=== PATIENT | male | born 1990 | race Caucasian/White ===

== ENCOUNTER 2020-09-06 20:27 | Emergency (ER) | payer OTHER ==
[2020-09-06 20:50] VITALS: BP 136/85; PULSE 116; TEMP 99.7; BMI 50.7
[2020-09-06 22:01] LABS: BASO % 0.9 % (0-2.0); EOS % 2.7 % (0-4.5); HEMATOCRIT 47.4 % (35.4-49); HEMOGLOBIN 16.2 GM/dl (11.7-16.9); LYMPH % 34.2 % (8-40); MCHC 34.2 g/dl (32.0-35.9); MEAN CELL VOLUME 90.6 fl (80-96); MEAN PLT VOLUME 8.6 fl (7.5-11.1); NEUT % 56.2 % (42.8-82.8); PLATELET COUNT 273 K/MM3 (134-434); RBC 5.23 M/mm3 (4.00-5.60); RDW 12.5 % (11.9-15.9); WHITE BLOOD COUNT 10.9 K/mm3 (4.0-10.8)
[2020-09-06 22:12] LABS: ALBUMIN 3.9 g/dl (3.4-5.0); ALK PHOS 56 U/L (45-117); ANION GAP 10 MMOL/L (8-16); BILIRUBIN,TOTAL 0.6 mg/dl (0.2-1); CALCIUM 9.3 mg/dl (8.5-10); CHLORIDE 106 mmol/L (98-107); CO2 22 mmol/L (21-32); GLUCOSE,RANDOM 104 mg/dl (74-106); POTASSIUM 3.7 mmol/L (3.5-5.1); SGOT/AST 50 U/L (15-37); SGPT/ALT 143 U/L (13-61); SODIUM 138 mmol/L (136-145)
== END 2020-09-07 00:40 | disposition home or self-care (01) ==
LOC: FER 20:27
DX: R07.89 Other chest pain (principal)
CPT/HCPCS: 36415; 71045-TC-FY; 80053; 82550; 82553; 84484; 85025; 93005; 99284-25

== ENCOUNTER 2022-03-04 11:29 | Emergency (ER) | payer OTHER ==
[2022-03-04 11:32] VITALS: BP 123/70; PULSE 87; TEMP 98; BMI 39.1
== END 2022-03-04 12:56 | disposition home or self-care (01) ==
LOC: JERFT 11:29
DX: S29.012A Strain of muscle and tendon of back wall of thorax, initial encounter (principal); V48.0XXA Car driver injured in noncollision transport accident in nontraffic accident, initial encounter
CPT/HCPCS: 72100-TC-FY; 99283-25